=== PATIENT | male | born 1995 | race Two or more races ===

== ENCOUNTER 2017-01-03 19:15 | Emergency (ER) | payer OTHER ==
--- NOTE | ~2017-01-03 | CR141 ---
[facility] A Service of [facility] & [facility] RADIOLOGY TEXT RESULTS PATIENT: BRAD VELARDE LOCATION: CFTX : [birth year] UNIT #: [id number] AGE: [address]: CHARLIE PALOMARES APRN SEX: M ORDER DR: [id number] [facility] [address] [place], [place] [address] [id number] P MR#: [id number] Acc #: [id number] NAME: BRAD VELARDE : 1995 SEX: M STUDY DATE/TIME: 01/03/2017 18:45 UNIT: [facility] SAULT ROOM: STUDY DESCRIPTION: CR Hand Min 3 Views Lt Attending Physician: Charlie Palomares Aprn Ordering Physician: Aminata Zaragoza P.A.-C. Primary Care Physician: No Primary Care Physician MEDICAL IMAGING REPORT This report is preliminary unless electronic signature is present EXAM Left hand. HISTORY Pain and swelling after wrestling injury earlier today. TECHNIQUE 3 views of the hand were obtained. FINDINGS AP, lateral, and oblique projections of the hand show good mineralization with normal carpal, metacarpal, and phalangeal anatomy without indication of fracture, dislocation, or soft tissue radiopaque foreign body. IMPRESSION Normal left hand. Dictated by... Trae Ang M.D. THIS IS AN ELECTRONICALLY VERIFIED REPORT Trae Ang M.D. at 01/03/2017 10:18 PM WINNIE/alyssa TD: 01/03/2017 19:53 JOB #: [id number] MEDICAL IMAGING REPORT Page 1 of 1 COPY
[~2017-01-03 19:15] MED LIST: ACETAMINOPHEN; AMOXICILLIN500 M1 PO; BENADRYL
== END 2017-01-03 19:37 | disposition home or self-care (01) ==
LOC: CFTX 19:15
DX: S63.602A Unspecified sprain of left thumb, initial encounter (principal); F17.210 Nicotine dependence, cigarettes, uncomplicated; Y04.0XXA Assault by unarmed brawl or fight, initial encounter; Y07.04 Female partner, perpetrator of maltreatment and neglect; Y92.009 Unspecified place in unspecified non-institutional (private) residence as the place of occurrence of the external cause
CPT/HCPCS: 29125; 73130; 99283